=== PATIENT | female | born 2000 | race Caucasian/White ===

== ENCOUNTER 2023-08-13 20:27 | Emergency (ER) | payer BC | END 2023-08-13 21:25 | disposition home or self-care (01) | LOC: DL.ED 20:27 | DX: S53.402A Unspecified sprain of left elbow, initial encounter (principal); V00.311A Fall from snowboard, initial encounter; Y93.23 Activity, snow (alpine) (downhill) skiing, snowboarding, sledding, tobogganing and snow tubing | CPT/HCPCS: 73080-LT; 99282; 99283 ==